=== PATIENT | male | born 1950 | race Caucasian/White ===

== ENCOUNTER → 2021-06-03 14:24 | Outpatient (BNVA) | payer MEDICARE, SELFPAY | PROVIDERS: PCP Internal Medicine; Visit Provider Urology | DX: N40.1 Benign prostatic hyperplasia with lower urinary tract symptoms (principal); N13.8 Other obstructive and reflux uropathy | CPT/HCPCS: 99212 ==

== ENCOUNTER 2025-04-18 09:03 | Outpatient (AMB) | payer MEDICARE, SELFPAY ==
--- NOTE | 2025-04-18 09:04 | A.OFFVIS_ITS ---
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 They are a patient of Dr Reyna. They are seen in the office today for the following urologic conditions. 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 Review of Systems Const Denies chills and Denies fever(s) Card Reports no additional complaints and Denies syncope Resp Denies cough GI Denies abdominal pain and Denies heartburn Reports as per HPI and Denies change in libido Neuro Denies syncope Psych Denies change in libido Endo Denies change in libido Physical Exam Const General: cooperative, healthy appearing, comfortable and no acute distress Orientation/consciousness: patient oriented x3 HEENT Face and sinus: Yes normal facial exam Mouth: moist mucous membranes Neck Neck: Yes normal visual inspection, Yes full ROM and Yes trachea midline Chest Chest palpation & inspection: normal inspection of the chest Resp Effort & Inspection: normal respiratory effort, able to speak in complete sentences and no respiratory distress GI Inspection: Yes normal to inspection Back/Spine/Pelvis Cervical Spine: normal cervical lordosis Thoracic/Lumbar Spine: thoracic and lumbar spine normal to inspection Skin General skin exam: no rashes or lesions noted Neuro General: patient oriented x3, gait normal, tone normal and moves all extremities Extrem General: Yes normal to inspection and Yes capillary refill normal Results AMB Urinalysis, Automated UA Leukoctes 0 Shannan/uL Last Edit by SERGE Lewis on 04/18/25 09:19 UA Nitrite Negative Last Edit by SERGE Lewis on 04/18/25 09:19 UA Urobilinogen 0.2 mg/dL Last Edit by Jen Colon, CCMA on 04/18/25 09:19 UA Protein 0 mg/dL Last Edit by Jen Colon, [facility] on 04/18/25 09:19 UA pH 7.0 Last Edit by Jen Colon, [facility] on 04/18/25 09:19 UA Blood 0 Donte/uL Last Edit by Jen Colon, [facility] on 04/18/25 09:19 UA Specific [place] 1.005 Last Edit by Jen Colon, [facility] on 04/18/25 09:1 9 UA Ketone Negative Last Edit by Jen Colon, CCMA on 04/18/25 09:19 UA Bilirubin 0 mg/dL Last Edit by Jen Colon, [facility] on 04/18/25 09:19 UA Glucose 0 mg/dL Last Edit by Jen Colon, [facility] on 04/18/25 09:19 Results Reviewed Results Reviewed: Laboratory Last Values Urine pH (Auto) 7.0 04/18/25 09:17 Specific [place] (Auto) 1.005 04/18/25 09:17 Urine Protein (Auto) 0 mg/dL 04/18/25 09:17 Glucose (UA)(Auto) 0 mg/dL 04/18/25 09:17 Urine Ketones (Auto) Negative 04/18/25 09:17 Urine Blood (Auto) 0 Donte/uL 04/18/25 09:17 Urine Nitrite (Auto) Negative 04/18/25 09:17 Urine Bilirubin (Auto) 0 mg/dL 04/18/25 09:17 Urine Urobilinogen (Auto) 0.2 mg/dL 04/18/25 09:17 Leukocyte Esterase (Auto) 0 Shannan/uL 04/18/25 09:17 Assessment & Plan Assessment & Plan (1) BPH w urinary obs/LUTS: Code(s): N40.1 - Benign prostatic hyperplasia with lower urinary tract symptoms; N13.8 - Other obstructive and reflux uropathy Category: Medical Plan Trial alfuzosin Orders: Orders AMB Urinalysis Automated Today N13.8 - Other obstructive and reflux uropathy, N40.1 - Benign prostatic hyperplasia with lower urinary tract symptoms AMB Post Void Residual by ultrasound Today N40.1 - Benign prostatic hyperplasia with lower urinary tract symptoms Medications: New alfuzosin ER 10 mg PO DAILY 30 tabs 2RF 30 days N13.8 - Other obstructive and reflux uropathy, N40.1 - Benign prostatic hyperplasia with lower urinary tract symptoms Patient Instructions: This note is constructed using voice recognition software. While every effort has been made to ensure accuracy joy loader errors may have been included. Imaging studies, laboratory and physical exam results were discussed and reviewed in detail. No major barriers to patient understanding were identified. An opportunity to ask questions regarding the treatment plan was provided. All questions were answered. The patient expressed understanding and agreement with the above treatment plan. The patient is aware they should contact our office by phone for worsening of their current condition or the appearance of new urologic symptoms. Compliance is encouraged with any medications and followup testing that is ordered. It is a privilege to participate in the urologic care of your patient. If you have any questions or concerns regarding treatment for the above conditions, or other urologic issues, please do not hesitate to contact me. The office telephone contact is [phone]. Sincerely, Dr Teto Saucedo MD, OP[facility] - Urology Compassionate Specialist Care for the Genitourinary System Coding Level of Care Code Est Pt Level 4 (45506) Diagnoses BPH w urinary obs/LUTS N40.1; N13.8
--- OUTSIDE RECORDS SUMMARY | 2025-04-18 09:50 | XMS_ITS | Encounter Summary ---
Author Organization [facility]ly [facility] Address [address] [place] [address] Phone Care Team Providers Care County Adviser Name Role Phone Dipak Reyna MD Primary Care Provider [phone] Reason for Referral * Physical Therapy (Routine) - Closed Specialty Diagnoses / Procedures Referred By Jayda cruz Referred To Contact Physical Therapy Diagnoses Encounter for rehabilitation bicepital tendinitis Procedures evaluate & treat Gisel Vizcarra MD Phone: tel: fax: [email or web address] [address] [address] Phone: tel: Referral ID Status Reason Start Date Expiration Date Visits Re quested Visits Authorized [id number] Closed 03/11/2022 05/15/2022 99 99 Encounter Details Date Type Department Care Team (Latest Contact Info) Description 01/20/2022 Transcribe Orders [facility] [address] [place] [address] Gisel Vizcarra MD [address] [place] [phone] [email or web address] Encounter for rehabilitation (Primary Dx) Social History Tobacco Use Types Packs/Day Years Used Date Smoking Tobacco: Never Smokeless Tobacco: Never Comments:dabbled with a pipe Alcohol Use Standard Drinks/Week Comments Yes 0 (1 standard drink = 0.6 oz pur e alcohol) very rare Child or Family Care Answer Date Record ed Do you have problems with on e of the following making it difficult for you to work, study, or receive health care? No 09/15/2020 Education Answer Date Recorded Are you interested in help w ith more adult education (for example, completing high school, GED, job training, learning the [place] language, technical skills, or developing parenting skills)? No 09/15/2020 Food Answer Date Recorded Within the past 6 months we worried whether our food would run out before we got money to buy more. Never True 09/15/2020 Within the past 6 months the food we bought just didn't last and we didn't have enough money to get more. Never True Paying for Meds Answer Date Recorded Do you have trouble paying for medicines? No 09/15/2020 Paying Utility Bills Answer Date Record ed Do you have trouble paying your heating or elect ricity bill? No 09/15/2020 Transportation Answer Date Recorded Has the lack of transportati on kept you from medical appointments or from getting medications? No 09/15/2020 Unemployment Answer Date Recorded Are you currently unemployed or working on a part-time or temporary basis, and looking for work? 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 Not on file Not on file Not on file documented as of this encounter Plan of Treatment Upcoming Encounters Date Type Department Care Team (Late st Contact Info) Description 09/25/2025 2:30 PM EDT Office Visit [facility] [address] [place] [address] Dr Tyson, [place] [address] Dipak Reyna MD [address] [place] [phone] documented as of this encounter Procedures Procedure Name Priority Date/Time Associated Diagnosis Comments AMB REFERRAL TO [facility] PHYSICAL THERAPY Routine 03/11/2022 4:18 PM EDT Encounter for rehabilitation documented in this encounter Results * Ambulatory referral to [facility] Physical Therapy (03/11/2022 4:18 PM EDT) Other Gisel Vizcarra MD AMB [facility] REFERRALS Final Result documented in this encounter Visit Diagnoses Diagnosis Encounter for rehabilitation- Primary documented in this encounter Additional Health Concerns Assessment Noted Time PHQ-2 Depression Total Score: 0 09/17/19 22 3:51 PM EDT documented as of this encounter Care Teams County Adviser Relationship Specialty Start Date End Date Dipak Reyna MD [address] [place] [phone] [email or web address] PCP - General Internal Medicine 04/24/18 documented as of this encounter Additional Source Comments The information contained in this document represents components of the legal health record. It is not the complete legal health record.[facility]
--- OUTSIDE RECORDS SUMMARY | 2025-04-18 09:50 | XMS_ITS | Encounter Summary ---
Author Organization [facility] Address [address] [place] [address] Phone Care Team Providers Care Coal Hiker Name Role Phone Arianne Gaston MD Unavailable [phone] Cooper Munoz MD Unavailable [phone] Otto Naidu MD Unavailable [phone] Elio Marshall MD Unavailable Chapo Bee MD Unavailable [phone] Elio Marshall MD Primary Care Provide r Dipak Reyna MD Primary Care Provider Reason for Referral * Physical Therapy (Routine) - Closed Specialty Diagnoses / Procedures Referred By Jayda cruz Referred To Contact Physical Therapy Diagnoses Encounter for rehabilitation right shoulder pain System, Provider Not In, [facility] [id number] [place] [address] Phone: tel: Referral ID Status Reason Start Date Expiration Date Visits Re quested Visits Authorized [id number] Closed 01/05/2018 01/05/2019 16 16 Encounter Details Date Type Department Care Team (Latest Contact Info) Description 01/05/2018 Transcribe Orders [facility] [address] [place] [address] Otto Mata MD [address] [address] Encounter for rehabilitation (Primary Dx) Social History Tobacco Use Types Packs/Day Years Used Date Smoking Tobacco: Former Smokeless Tobacco: Never Sex and Gender Information Value Date Recorded Sex Assigned at Male 01/10/2025 2:23 PM EDT Legal Sex Male 10:04 PM EDT Gender Identity Male 01/10/2025 2:23 PM EDT Sexual Orientation Straight 01/10/2025 2: 23 PM EDT documented as of this encounter Plan of Treatment Upcoming Encounters Date Type Department Care Team (Late st Contact Info) Description 09/25/2025 2:30 PM EDT Office Visit [facility] [address] [place] [address] [place] [address] Dipak Reyna MD [address] [place] [phone] [email or web address] Scheduled Referrals Name Type Priority Associated Diagnoses Orde r Schedule Ambulatory referral to [facility] Physical Therapy Outpatient Referral Routine Encounter for rehabilitation Ordered: 01/05/2018 documented as of this encounter Visit Diagnoses Diagnosis Encounter for rehabilitation- Primary documented in this encounter Additional Health Concerns Assessment Noted Time PHQ-2 Depression Total Score: 0 04/12/20 17 11:16 AM EST documented as of this encounter Care Teams Coal Hiker Relationship Specialty Start Date End Date Elio Marshall MD [address] [place] [address] [email or web address] PCP - General Internal Medicine 04/04/17 04/23/18 Dipak Reyna MD [address] [place] [address] PCP - General Internal Medicine 04/24/18 Arianne Gaston MD [address] [place] [address] [email or web address] Historical LMR Provider 03/01/17 05/23/21 Cooper Munoz MD [address] [place] [address] Historical LMR Provider 03/01/17 05/23/21 Otto Naidu MD [address] [place] [address] [email or web address] Historical LMR Provider 03/01/17 2 Elio Marshall MD [address] [place] [address] [email or web address] Historical LMR Provider 03/01/17 05/23/21 Chapo Bee MD [address] [place] [address] Historical LMR Provider 03/01/17 documented as of this encounter Additional Source Comments The information contained in this document represents components of the legal health record. It is not the complete legal health record.[facility]
--- OUTSIDE RECORDS SUMMARY | 2025-04-18 09:50 | XMS_ITS | Clinical Summary ---
Author Organization [facility] Address [address] [place] [address] Phone Care Team Providers Care Log Deckman Name Role Phone Dipak Reyna MD Primary Care Provider Allergies No known active allergies Medications cyanocobalamin (VIT B-12) 1000 MCG tablet Take 100 mcg by mouth daily. Active polyethylene glycol (MIRALAX) 17 gram/dose powder Take 17 g by mouth daily. Active cholecalciferol (VITAMIN D3) 3,000 unit tablet Take 5,000 Units by mouth daily. Active levothyroxine (SYNTHROID, LEVOTHROID) 75 MCG tabletIndications:A cquired hypothyroidism TAKE 1 TABLET BY MOUTH EVERY DAY IN THE MORNING 90 tablet 3 5 Active fluticasone propionate (FLONASE) 50 mcg/actuation nasal sprayIndications:Se asonal allergic rhinitis due to pollen SPRAY 1 SPRAY BY NASAL ROUTE EVERY DAY 16 mL 2 5 Active Active Problems Problem Noted Date Diagnosed Date Seasonal allergic rhinitis due to pollen 023 Assessment & Plan (09/20/2022 10:10 PM EDT): Will add fluticasone to help with allergy symptoms. Constipation 09/15/2020 Hyperglycemia 04/12/2017 Assessment & Plan (09/27/2024 9:49 AM EDT): His blood sugar is normal. Dyslipidemia 03/31/2017 Assessment & Plan (09/27/2024 9:49 AM EDT): His cholesterol is in a good range. Assessment & Plan (09/25/2023 9:22 PM EDT): He would like to try plant sterols. Will recheck his lipid panel in 3 months. Assessment & Plan (11/02/2021 9:04 PM EDT): We discussed that his initiation of atorvastatin was for primary prevention and family history. Will continue to hold atorvastatin due to above concerns and will recheck in 3 months. Assessment & Plan (09/18/2021 5:11 PM EDT): Continue atorvastatin. Hypothyroid 03/31/2017 Assessment & Plan (09/27/2024 9:49 AM EDT): Continue levothyroxine. Assessment & Plan (09/20/2022 10:09 PM EDT): Will decrease levothyroxine to 75 mcg daily and recheck in 3 months. Assessment & Plan (09/18/2021 5:11 PM EDT): Continue levothyroxine. Immunizations Immunization Administration Dates Next Due COVID-19 (Pre-03/07) Moderna Vaccine, Bivalent 6mo+ 09/03/2022 COVID-19 (Pre-03/07) Pfizer Vaccine, mRNA, PF 07/29/2020,07/08/2020 COVID-19 Moderna Spikevax Vaccine 12+ 07/16/2023 INFLUENZA, SPLIT VIRUS, TRIV ALENT W/ PRESERVATIVE IM 02/15/2014,03/01/2012,02/25/2011 Influenza High-Dose Quadriva lent Preservative Free IM 01/29/2022 Influenza High-Dose Trivalen t Preservative Free IM 01/26/2019,02/11/2018,02/01/2017,03/11,03/28/2015 Influenza Quadrivalent Adjuv anted Preservative Free IM 02/01/2023,02/21/2021,01/22/2020 Influenza Trivalent Adjuvant ed Preservative free IM 02/29/2024 Influenza trivalent preserva tive free intradermal 02/01/2013 Influenza, Unspecified Formulation 01/29/2020 Pneumococcal conjugate PCV13 03/28/2015 Pneumococcal polysaccharide PPSV23 03/30/2016 RSV Vaccine (monovalent, adjuvanted) 02/01/2023 Td (adult),2 Lf Tetanus Toxo id, PF, Adsorbed 04/12/2017 Tdap 08/15/2006 Zoster live 07/14/2011 Zoster recombinant 11/13/2019,07/13/2019 Family History Medical History Relation Comments Autism Brother Heart attack Brother ? Heart attack Father 40s Heart disease Father Glucose intolerance Mother Heart attack Mother Heart disease Mother Heart failure Mother Hyperlipidemia Mother Hypertension Mother Colon cancer Paternal Grandmother Down syndrome Son 2 Relation Status Comments Brother (Age 63) Daughter 1 Alive Daughter 2 Alive Father (Age 65) Mother mid 90s Paternal Grandmother Son 1 Alive Son 2 Social History Tobacco Use Types Packs/Day Years Used Date Smoking Tobacco: Never Smokeless Tobacco: Never Tobacco Cessation:Counseling Given: Not Answered Comments:dabbled with a pipe Alcohol Use Standard Drinks/Week Comments Not Currently 0 (1 standard drink = 0.6 oz pur e alcohol) very rare Child or Family Care Answer Date Record ed Do you have problems with on e of the following making it difficult for you to work, study, or receive health care? No 09/15/2020 Education Answer Date Recorded Are you interested in more education? Not on palma e 09/20/2022 Are you concerned about learning? Not on file 09/20/2022 No 09/20/2022 No 09/20/2022 Food Answer Date Recorded Within the past [...] basis, and looking for work? No 09/15/2020 Digital Access Answer Date Recorded No 10/09/2022 No 10/09/2022 Reliable internet access at home? Not on file 10/09/2022 Device with a working camera? Not on file Intimate Partner Violence Answer Date R ecorded Denied Basic Needs Not on file 09/23/2024 In the past 12 months have y ou been in a relationship with a person who hurts, threatens, or tries to control you? No 09/23/2024 Worried food would run out Not on file 09/23 In the past 12 months have y ou been in a relationship with a person who hurts, threatens, or tries to control you? No 09/23/2024 Sex and Gender Information Value Date Recorded [...] file Not on file Not on file Last Filed Vital Signs Vital Sign Reading Time Taken Comments Blood Pressure 122/64 10/11/2024 11:31 AM EDT Pulse 54 10/11/2024 11:31 AM EDT Temperature 36.7 C (98 F) 10/11/2024 11:31 AM EDT Respiratory Rate 16 09/16/2021 4:29 PM EDT Oxygen Saturation 99% 10/11/2024 11:31 AM EDT Inhaled Oxygen Concentration - - Weight 75.3 kg (166 lb) 10/11/2024 11:31 AM EDT Height 171.2 cm (5' 7.4 ) 09/24/2024 2:22 PM EDT Body Mass Index 25.69 09/24/2024 2:22 PM EDT Plan of Treatment Upcoming Encounters Date Type Department Care Team (Late st Contact Info) Description 09/25/2025 2:30 PM EDT [facility] Visit [facility] [address] [place] [address] Dr Tyson [place] [address] Dipak Reyna MD [address] [place] [address], [address] [place] [address] [email or web address] Health Maintenance Due Date Last Done Comments HEPATITIS C SCREENING 1967 COLOGUARD 1994 FIT TEST 1994 FOBT 1994 SIGMOIDOSCOPY 1994 VIRTUAL COLONOSCOPY 1994 INFLUENZA VACCINE (#1) 2024 , 02/01/2023, 02/01/2023, Additional history exists COVID-19 VACCINE ( season) 2025 07/20/2024, 01/13/2024, 07/16/2023, Additional history exists TSH LEVEL 09/18/2025 09/18/2024, 08/15, 12/20/2022, Additional history exists DEPRESSION SCREENING 09/23/2025 09/23/2024 COLONOSCOPY 12/15/2026 12/15/2016 COLORECTAL CANCER SCREENING 12/15/2026 Adult Td,Tdap Booster 04/12/2027 04/12/2017, 007 LIPID PANEL 09/18/2029 09/18/2024, 08/14, 02/08/2022, Additional history exists PNEUMOCOCCAL VACCINES (50+ years) Completed 03/30/2016, 03/28/2015 ZOSTER VACCINES Completed 11/13/2019, 06/17, 07/14/2011 RSV VACCINE Completed 02/01/2023 SMOKING STATUS SCREENING (Once After 26 Yrs) Completed 10/11/2024 HEPATITIS A VACCINES Aged Out No long er eligible based on patient's age to complete this topic HIB VACCINES Aged Out No longer eligi ble based on patient's age to complete this topic MENINGOCOCCAL VACCINES (ACWY) Aged Out No longer eligible based on patient's age to complete this topic MENINGOCOCCAL VACCINES (B) Aged Out N o longer eligible based on patient's age to complete this topic Medical Devices Not on file Procedures Procedure Name Priority Date/Time Associated Diagnosis Comments LIPID PANEL Routine 09/18/2024 8:03 AM EDT Blood tests for routine general physical examination TSH WITH REFLEX Routine 09/18/2024 8:03 AM EDT Acquired hypothyroidism Blood tests for routine general physical examination from Last 3 Months or Most Recently Relevant to Health Maintenance Results * TSH with reflex (09/18/2024 8:03 AM EDT) TSH 1.07 0.27 - 4.20 uIU/mL [facility] Blood 09/18/2024 8:03 AM EDT 09/18/2024 8:10 AM EDT Dipak Reyna MD LAB BLOOD BKR ORDERABLES Fi nal Result [address] [address] * Lipid panel (09/18/2024 8:03 AM EDT) HDL 53 mg/dL [facility] Comment: Interpretation <40 mg/dL: Low HDL cholesterol (major risk factor for CHD) Greater than or equal to 60 mg/dL: High HDL cholesterol ( negative risk factor for CHD) HDL - cholesterol is affected by a number of factors, e.g. smoking, excerise, hormones, sex and age. CHOLESTEROL 178 0 - 240 mg/dL [facility] TRIGLYCERIDES 71 30 - 160 mg/dL [facility] LDL 111 50 - 129 mg/dL [facility] Comment: LDL levels in terms of risk for coronary heart disease: <100 mg/dL: Optimal 100-129 mg/dL: Near or above optimal 130-159 mg/dL: Borderline high 160-189 mg/dL: High >190 mg/dL: Very High CARDIAC RISK RATIO 3.4 3.4 - 5.0 [facility] Blood 09/18/2024 8:03 AM EDT 09/18/2024 8:09 AM EDT us Dipak Reyna MD LAB BLOOD BKR ORDERABLES Fi nal Result [address] [address] from Last 3 Months or Most Recently Relevant to Health Maintenance Insurance MEDICARE PART A & B [employer] MEDICARE SUPPLEMENT MEDICARE PART A & B [employer] MEDICARE SUPPLEMENT MEDICARE PART A & B MEDICARE PART A & B [employer] MEDICARE SUPPLEMENT [facility] MEDICARE SUPPLEMENT MEDICARE PART A & B [facility] MEDICARE SUPPLEMENT MEDICARE PART A & B [employer] MEDICARE SUPPLEMENT Care Teams Log Deckman Relationship Specialty Start Date End Date Dipak Reyna MD [address] [place] [address], [address] [place] [address] [email or web address] PCP - General Internal Medicine 04/24/18 Additional Source Comments The information contained in this document represents components of the legal health record. It is not the complete legal health record.[facility]
== END 2025-04-18 10:15 | disposition home or self-care (01) ==
LOC: HO.HUSH 09:04
PROVIDERS: PCP Internal Medicine; Visit Provider Urology
DX: N40.1 Benign prostatic hyperplasia with lower urinary tract symptoms (principal); N13.8 Other obstructive and reflux uropathy
CPT/HCPCS: 99214

== ENCOUNTER → 2025-04-18 09:03 | Outpatient (BNVA) | payer MEDICARE, SELFPAY | PROVIDERS: PCP Internal Medicine; Visit Provider Urology | DX: N40.1 Benign prostatic hyperplasia with lower urinary tract symptoms (principal); N13.8 Other obstructive and reflux uropathy | CPT/HCPCS: 81003; 99212 ==